=== PATIENT | female | born 1960 | race Caucasian/White ===

== ENCOUNTER 2019-06-29 15:01 | Emergency (ER) | payer BC ==
[2019-06-29 15:18] VITALS: BP 165/82; PULSE 80
--- NOTE | 2019-06-29 15:25 | EDM.PDOC ---
"ED HPI GENERAL MEDICAL PROBLEM - General Chief Complaint: Abdominal Pain Stated Complaint: BACK PAIN Time Seen by Provider: 06/29/19 15:25 Source of Information: Reports: Patient, Old Records, RN, RN Notes Reviewed History Limitations: Reports: No Limitations - History of Present Illness INITIAL COMMENTS - FREE TEXT/NARRATIVE: Claudia presents to the ER with complaint of right flank pain that started 2 days ago. The pain radiates to the right lower abdomen. She has had her appendix and gallbladder removed. Patient also states she has Crohn's and has had a portion of her small bowel removed. She denies any nausea, vomiting or diarrhea. Onset: Gradual Duration: Day(s): (2-3), Constant Location: Reports: Back (Rt flank), Radiates to (RLQ, Rt groin) Quality: Reports: Ache Severity: Severe Improves with: Reports: None Worsens with: Reports: None Associated Symptoms: Reports: No Other Symptoms Right Flank Pain Score (Numeric/FACES): 9 - Related Data Allergies Allergy/AdvReac Type Severity Reaction Status Date / Time codeine Allergy Respiratory Verified 06/28/16 23:29 Depression Sulfa (Sulfonamide Allergy Rash Verified 06/28/16 21:45 Antibiotics) Home Meds: Home Meds Adalimumab [Humira] 40 mg IM WEEKLY 06/28/16 [History] azaTHIOprine [Azathioprine] 175 mg PO DAILY 06/28/16 [History] hydroCHLOROthiazide [Hydrochlorothiazide] 25 mg PO DAILY 06/28/16 [History] Past Medical History Cardiovascular History: Reports: Hypertension Gastrointestinal History: Reports: Other (See Below) Other Gastrointestinal History: crohns - Past Surgical History GI Surgical History: Reports: Appendectomy, Cholecystectomy Social & Family History - Family History Family Medical History: Noncontributory - Tobacco Use Smoking Status *Q: Never Smoker ED ROS GENERAL - Review of Systems Review Of Systems: Comprehensive ROS is negative, except as noted in HPI. ED EXAM, RENAL/ - Physical Exam Exam: See Below Exam Limited By: No Limitations General Appearance: Alert, WD/WN, No Apparent Distress Eye Exam: Bilateral Eye: Normal Inspection (No scleral icterus) Nose: Normal Inspection Throat/Mouth: Normal Inspection Head: Atraumatic, Normocephalic Neck: Normal Inspection Respiratory/Chest: No Respiratory Distress, Lungs Clear, Normal Breath Sounds, No Accessory Muscle Use, Chest Non-Tender Cardiovascular: Regular Rate, Rhythm GI/Abdominal: Normal Bowel Sounds, Soft, No Organomegaly, No Distention, No Abnormal Bruit, No Mass, Other (mild RUQ tenderness, no peritoneal signs). No: Guarding, Rigid, Rebound (Female) Exam: Deferred Rectal (Female) Exam: Deferred Back Exam: CVA Tenderness (R), Paraspinal Tenderness. No: CVA Tenderness (L), Vertebral Tenderness Extremities: Normal Inspection Neurological: Alert, Oriented, CN II-XII Intact, Normal Cognition, No Motor/ Sensory Deficits Psychiatric: Anxious Skin Exam: Warm, Dry, Intact, Normal Color, No Rash Course - Vital Signs Last Recorded V/S: Last Vital Signs Temp 97.0 F 06/29/19 15:14 Pulse 80 06/29/19 15:14 Resp 16 06/29/19 15:14 BP 165/82 H 06/29/19 15:14 Pulse Ox 99 06/29/19 15:14 - Orders/Labs/Meds Orders: Active Orders 24 hr Category Date Time Status Abdomen Pelvis wo Cont [CT] Stat Exams 06/29/19 15:45 Taken CBC WITH AUTO DIFF [HEME] Stat Lab 06/29/19 16:35 Ordered COMPREHENSIVE METABOLIC PN,CMP [CHEM] Stat Lab 06/29/19 16:35 Ordered CULTURE URINE [RM] Stat Lab 06/29/19 15:15 Received Labs: Laboratory Tests 06/29/19 Range/Units 15:15 Urine Color Yellow (YELLOW) Urine Appearance Clear (CLEAR) Urine pH 6.5 (5.0-9.0) Ur Specific [place] 1.020 (1.005-1.030) Urine Protein Negative (NEGATIVE) Urine Glucose (UA) Negative (NEGATIVE) Urine Ketones Negative (NEGATIVE) Urine Occult Blood Moderate H (NEGATIVE) Urine Nitrite Negative (NEGATIVE) Urine Bilirubin Negative (NEGATIVE) Urine Urobilinogen 0.2 (0.2-1.0) mg/dL Ur Leukocyte Esterase Trace H (NEGATIVE) Urine RBC 40-50 H /HPF Urine WBC 0-5 (0-5/HPF) /HPF Ur Epithelial Cells Occasional (NOT SEEN) /HPF Amorphous Sediment Rare (NOT SEEN) /HPF Urine Bacteria Occasional (0-FEW/HPF) /HPF Urine Mucus Rare (NOT SEEN) /LPF Meds: Medications Discontinued Medications Generic Name Dose Route Start Last Admin Trade Name Freq PRN Reason Stop Dose Admin Ketorolac Tromethamine 60 mg 06/29/19 15:31 06/29/19 16:07 Toradol IM 06/29/19 15:32 60 mg ONETIME ONE Administration - Radiology Interpretation Free Text[facility]Narrative:: [facility] [place] [facility] Call: [phone] assistance Online chat: [email or web address] Name: CLAUDIA GIBSON Age: 58Years F Date: 06/29/2019 SSN: -- : [id number] Study: CT ABDOMEN/PELVIS WO Requesting Physician: VIKTORIYA AGUILAR Images: [id number] Addl Studies: Provided Clinical History: Contrast: Without Contrast Medium: Contrast Amount: Contrast Method: Page 1 of 2 PROCEDURE INFORMATION: Exam: CT Abdomen And Pelvis Without Contrast Exam date and time: 06/29/2019 4:01 PM Age: 58 years old Clinical indication: Abdominal pain; Flank; Right; Prior surgery; Surgery date: 6+ months; Surgery type: Colon, gb, hysterectomy TECHNIQUE: Imaging protocol: Computed tomography of the abdomen and pelvis without contrast. Radiation optimization: All CT scans at this facility use at least one of these dose optimization techniques: automated exposure control; mA and/or kV adjustment per patient size (includes targeted exams where dose is matched to clinical indication); or iterative reconstruction. COMPARISON: CT Abdomen Pelvis wo Cont 06/28/2016 11:12 PM FINDINGS: Lungs: There are no areas of lung consolidation. 4 mm left lower lobe noncalcified pulmonary nodule larger. 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 Gallbladder and bile ducts: The gallbladder is surgically absent.There is dilation of intra-hepatic ducts and the common bile duct, probably physiologic post-cholecystectomy. Pancreas: The pancreatic parenchyma is normal in bulk and sharply marginated. Duct is not dilated. No calcifications, masses, or abnormal fluid collections. Spleen: Spleen is normal in size. No mass or fluid collection. Adrenals: There are no adrenal masses. Kidneys and ureters: Normal in parenchymal bulk. No hydronephrosis or asymmetric perinephric stranding. No solid masses. No stones. CLAUDIA GIBSON | Final Radiology Report CONFIDENTIALITY STATEMENT This report is intended only for use by the referring physician, and only in accordance with law. If you received this in error, call [phone]. Page 2 of 2 Stomach and bowel: No significant abnormalities of the stomach. There are no dilated or thickened small bowel loops. Gas and stool of appropriate quantities are seen in the colon. No mass. In next Modic sutures relating to cecum and sigmoid colon. Appendix: No evidence of appendicitis. Intraperitoneal space: Unremarkable. No free air. No significant fluid collection. Vasculature: There is atherosclerotic calcification of the aorto-iliac tree. There is no abdominal aortic aneurysm. Lymph nodes: There are no enlarged celiac, mesenteric, periportal, extraperitoneal or inguinal lymph nodes. Bladder: There is no bladder wall thickening, mass, or calculus. Reproductive: The uterus is surgically absent.No adenexal masses. Bones/joints: Diffuse osteopenia.There are no suspicious lytic or osteosclerotic lesions. There are no vertebral compression fractures. Soft tissues: Unremarkable. IMPRESSION: 1. No acute intra-abdominal disease. 2. 4 mm left lower lobe noncalcified pulmonary nodule larger. This could be a lung cancer. Options include open lung biopsy, short interval follow-up (such as 3-6 month) CT of the chest. The lesion potentially puts it below resolution of PET scan. Thank you for allowing us to participate in the care of your patient. Dictated and Authenticated by: Vic Bahena MD 06/29/2019 4:29 PM Central Time ([place] & [place]) - Re-Assessments/Exams Free Text/Narrative Re-Assessment/Exam: 06/29/19 17:01 I called Tabitha Madsen NP (pt's PCP) to inform her of the findings of today' s ER visit. Tabitha agrees to see the pt in clinic Jul.03 for f/u and will recheck the UA, and refer the pt to the appropriate specialist for evaluation of the concerning left lung nodule. Departure - Departure Time of Disposition: 16:48 Disposition: Home, Self-Care 01 Condition: Good, Fair Clinical Impression: Acute right flank pain, Left lower lobe pulmonary nodule Hematuria Qualifiers: Hematuria type: other microscopic Qualified Code(s): R31.29 - Other microscopic hematuria - Discharge Information *PRESCRIPTION DRUG MONITORING PROGRAM REVIEWED*: No *COPY OF PRESCRIPTION DRUG MONITORING REPORT IN PATIENT RADHA: No Instructions: Pulmonary Nodule, Flank Pain, Adult, Hematuria, Adult Forms: ED Department Discharge Additional Instructions: Rx: Hydrocodone APAP 5mg/325mg *Do not drive while taking this medication. Rx: Zofran 4mg Follow up TuesdayJul.03 with Tabitha Madsen [facility] at [facility] to repeat the urine test, and obtain a referral for evaluation of the left lung nodule. Sepsis Event Note - Evaluation Sepsis Screening Result: No Definite Risk - Focused Exam Vital Signs: Vital Signs Temp Pulse Resp BP Pulse Ox 06/29/19 15:14 97.0 F 80 16 165/82 H 99 Date Exam was Performed: 06/29/19 Time Exam was Performed: 16:58 - My Orders Last 24 Hours: My Active Orders 06/29/19 15:15 CULTURE URINE [RM] Stat 06/29/19 15:45 Abdomen Pelvis wo Cont [CT] Stat 06/29/19 16:35 CBC WITH AUTO DIFF [HEME] Stat COMPREHENSIVE METABOLIC PN,CMP [CHEM] Stat - Assessment/Plan Last 24 Hours: My Active Orders 06/29/19 15:15 CULTURE URINE [RM] Stat 06/29/19 15:45 Abdomen Pelvis wo Cont [CT] Stat 06/29/19 16:35 CBC WITH AUTO DIFF [HEME] Stat COMPREHENSIVE METABOLIC PN,CMP [CHEM] Stat"
[2019-06-29] MEDS ORDERED: Ketorolac 30 MG/ML SDV IM ONE (15:31)
[2019-06-29 17:17] LABS: ANION GAP 10.7; CHLORIDE,CL 102 mmol/L (101-111); SODIUM,NA 139 mmol/L (135-145)
== END 2019-06-29 17:03 | disposition home or self-care (01) ==
LOC: DL.ED 15:01
DX: R10.11 Right upper quadrant pain (principal); R91.1 Solitary pulmonary nodule; R31.29 Other microscopic hematuria; I10 Essential (primary) hypertension; Z88.5 Allergy status to narcotic agent; Z88.2 Allergy status to sulfonamides; Z79.899 Other long term (current) drug therapy
CPT/HCPCS: 36415; 74176; 80053; 81001; 85025; 87086; 87088; 87186; 96372; 99284-25; J1885

== ENCOUNTER 2023-06-29 15:26 | Emergency (ER) | payer BC ==
[2023-06-29] MEDS ORDERED: Piperacillin/Tazobactam 4.5 GM in Sodium Chloride 0.9% 100 ML IV ONE (15:46)
[2023-06-29 15:54] LABS: BASOPHILS PERCENT AUTO 0.3 % (0.0-1.0); EOSINOPHILS PERCENT AUTO 0.1 % (1.0-3.0); HEMATOCRIT 41.7 % (37.0-47.0); HEMOGLOBIN 14.1 g/dL (12.0-16.0); LYMPHOCYTES PERCENT AUTO 6.3 % (20.5-50.1); MEAN CORPUSCULAR HEMOGLOBIN 29.6 pg (27.0-34.0); MEAN CORPUSCULAR HGB CONC 33.8 g/dL (33.0-35.0); MEAN CORPUSCULAR VOLUME 87.6 fL (80-100); MONOCYTES PERCENT AUTO 8.8 % (2-8); NEUTROPHILS PERCENT AUTO 84.5 % (42.2-75.2); PLATELET COUNT,PLT 319 10^3/uL (150-450); RED BLOOD CELL COUNT 4.76 10^6/uL (4.2-5.4); WHITE BLOOD CELL COUNT,WBC 14.7 10^3/uL (5.0-10.0)
[2023-06-29 16:56] VITALS: BP 149/88; PULSE 90
== END 2023-06-29 16:55 | disposition home or self-care (01) ==
LOC: DL.ED 15:26
DX: K04.7 Periapical abscess without sinus (principal); L03.211 Cellulitis of face; I10 Essential (primary) hypertension; Z86.16 Personal history of COVID-19; Z88.5 Allergy status to narcotic agent; Z88.2 Allergy status to sulfonamides; Z88.1 Allergy status to other antibiotic agents; Z79.899 Other long term (current) drug therapy
CPT/HCPCS: 36415; 85025; 96365; 99283; 99283-25; J2543; J3490

== ENCOUNTER 2025-03-02 18:15 | Emergency (ER) | payer BC ==
[2025-03-02 19:00] VITALS: BP 141/75; PULSE 59
== END 2025-03-02 18:54 | disposition home or self-care (01) ==
LOC: DL.ED 18:15
DX: M62.830 Muscle spasm of back (principal); M62.838 Other muscle spasm; I10 Essential (primary) hypertension; Z90.49 Acquired absence of other specified parts of digestive tract; Z90.710 Acquired absence of both cervix and uterus; Z88.5 Allergy status to narcotic agent; Z88.1 Allergy status to other antibiotic agents; Z88.2 Allergy status to sulfonamides; Z79.899 Other long term (current) drug therapy
CPT/HCPCS: 99282; 99283